=== PATIENT | female | born 1960 | race Asian ===

== ENCOUNTER 2020-12-29 12:06 | Emergency (ER) | payer OTHER ==
--- OUTSIDE RECORDS SUMMARY | 2020-12-29 12:11 | XMS REPORT | Continuity of Care Document ---
:1960 Author Organization [facility] [place] [facility] t Address [address] [place] [address] Care Team Providers Name Role Phone ABI Attending Clinician Unavailable MICK Attending Clinician Unavailable ABI Attending Clinician Unavailable Alexandr Alex Attending Clinician Unavailable [facility] Attending Clinician Unavailable [facility] Attending Clinician Unavailable Brianda Alex Attending Clinician Unavailable Payers Payer Name Policy Type Policy Number Effective Date Expiration Date Chris BIGGS [id number] 2020 HEALTH PLAN 00:00:00 Problems Condition Condition Condition Status Onset Resolution Last Treating Co mments Source Name Details Category Date Date Treatment Clinician Date R01.1 Diagnosis Active 2017-01-21 [facility] 8-16 11:21:00 l R01.1 00:00: [place] 00 Active 01/01/2017 [facility] History of History of Problem Resolve Univers constipati constipati d it y of on on [place] [facility] History of History of Problem Resolve Univers diabetes diabetes d ity of mellitus mellitus [place] [facility] History of History of Problem Resolve Univers Helicobact Helicobact d [place] pylori [place] pylori [place] infection infection Phys [place] ans History of History of Problem Resolve Univers hypertensi hypertensi d it y of on on [place] [facility] Well woman Well woman Problem Active U nivers exam (no exam (no ity of gynecolog[place] gynecolog[place]ac exam[place] isaac exam) Phys ici ans Contact Contact Problem Active Univers with and with and ity of (suspected (suspected [place] exposure ) exposure Ph ysici to viral to viral ans hepatitis hepatitis Screening Screening Problem Active Uni vers for HIV for HIV ity of (human (human [place] immunodefi immunodefi Ph ysici ciency ciency ans virus) virus) Cataract Cataract Problem Active Unive rs ity of [place] [facility] Well woman Well woman Problem Active U nivers exam with exam with ity of routine routine [place] gynecologi gynecologi Ph ysici isaac exam isaac exam ans Acute Acute Problem Active Univers bronchitis bronchitis it y of [place] [facility] Systolic Systolic Problem Active Unive rs ejection ejection ity of murmur murmur [place] [facility] Skin rash Skin rash Problem Active Uni vers ity of [place] [facility] Chronic Chronic Problem Active Univers cough cough ity of [place] [facility] Hepatitis Hepatitis Problem Active Uni vers B B ity of vaccin[place] vaccinatio [place] status n status Physic i unknown unknown ans Abdominal Abdominal Problem Active Uni vers pain, pain, ity of acute acute [place] [facility] Steatosis Steatosis Problem Active Uni vers of liver of liver ity of [place] [facility] Encounter Encounter Problem Active Uni vers for for [place] mamm[place] Phys ici for breast for breast an s cancer cancer Mitral Mitral Problem Active Univers valve valve ity of prolapse prolapse [place] [facility] Hypertensi Hypertensi Problem Active U nivers ve heart ve heart ity of disease disease [place] without without Physici CHF CHF ans Acid Acid Problem Active Univers reflux reflux ity of [place] [facility] Diabetes Diabetes Problem Active Unive rs mellitus, mellitus, ity of type II type II [place] [facility] HTN HTN Problem Active Univers (hypertens (hypertens it y of ion) ion) [place] [facility] Microalbum Microalbum Problem Active 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 2 [place] diabetes diabetes Physic i mellitus mellitus ans Hyperlipid Hyperlipid Problem Active U nivers emia emia ity of [place] [facility] Vitamin D Vitamin D Problem Active Uni vers deficiency deficiency it y of [place] [facility] Encounter Encounter Problem Active Uni vers for for [place] of vaccinatio vaccinatio [place] Physici ans Sciatica Sciatica Problem Active Unive rs of left of left ity of side side [place] [facility] Breast Breast Problem Active Univers cancer cancer [place] of [place] [facility] [place] Overweight Overweight Problem Active U nivers (BMI (BMI ity of 25.0-29.9) 25.0-29.9) [place] [facility] 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 Social History Social Habit Start Date Stop Date Quantity Comments Source Social History 2017-01-22 2017-01-22 [facility] 04:59:00 04:59:00 Smoking Status Start Date Stop Date Source Never smoked tobacco (finding) U [facility] Medications Ordered Filled Start Stop Current Ordering Indication Dosage Frequency Signature Comments Components Source Medication Medication Date Date Medication? Clinician (SIG) Name Name Chlorthalid Chlorthalid Yes LIEN 1 QD TAKE 1 Univers one 25 MG one 25 MG 3-10 ALEX TABLET i ty of Oral Tablet Oral Tablet 00:00: P.A. DAILY. Physici ans Meclizine Meclizine Yes LIEN 1 QD TAKE 1 U nivers HCl - 25 MG HCl - 25 MG 3-10 ALEX TABLET ity of Oral Tablet Oral Tablet 00:00: P.A. Daily PRN [place] 00 dizziness Physici ans Atorvastati Atorvastati Yes LIEN TAKE 1 Univers n Calcium n Calcium 3-22 ALEX TABLET AT ity of 20 MG Oral 20 MG Oral 00:00: P.A. BEDTIME. [place] Tablet Tablet 00 Physici ans metFORMIN metFORMIN Yes LIEN Q0.5D TAKE 1 Univers HCl - 850 HCl - 850 6-20 ALEX TABLET i ty of MG Oral MG Oral 00:00: P.A. TWICE [place] Tablet Tablet 00 DAILY WITH Physi ci MEALS. ans Losartan Losartan Yes LIEN 1 QD TAKE 1 Uni vers Potassium Potassium 1-02 ALEX TABLET i ty of 100 MG Oral 100 MG Oral 00:00: P.A. DAILY. [place] Tablet Tablet Physici ans Vitamin D Vitamin D 2017-0 Yes LIEN TAKE 1 U nivers (Ergocalcif (Ergocalcif 7-10 ALEX CAPSULE BY ity of kiley) 1.25 kiley) 1.25 00:00: P.A. MOUTH [place] MG (34146 MG (15065 00 WEEKLY Phy sici [place]) Oral [place]) Oral ans Capsule Capsule Immunizations Ordered Immunization Filled Immunization Date Status Commen ts Source Name Name Shingrix 50 MCG 2020-07-26 Completed Universit y of Intramuscular 12:12:00 [place] [facility] Suspension Reconstituted Shingrix 50 MCG 2020-04-25 Completed Universit y of Intramuscular 09:42:00 [place] [facility] Suspension Reconstituted Flublok Quadrivalent 2020-04-25 Completed Univ ersity of 0.5 ML Intramuscular 09:40:00 [facility] Solution Prefilled Syringe Fluzone Quadrivalent 2019-03-22 Completed Univ ersity of 0.5 ML Intramuscular 11:08:00 [facility] Suspension Engerix-B 20 MCG/ML 2018-05-05 Completed Unive rsity of Intramuscular 10:30:00 [place] [facility]ians Injectable Tdap 2018-02-09 Completed University of 10:42:00 [place] [facility]icia ns Fluzone Quadrivalent 2018-02-09 Completed Univ ersity of 0.5 ML Intramuscular 10:41:00 [facility] Suspension Pneumovax 23 25 2017-11-05 Completed Universit y of MCG/0.5ML Injection 12:06:00 [place] [facility] Injectable Engerix-B 20 MCG/ML 2017-11-05 Completed Unive rsity of Intramuscular 12:05:00 [place] [facility] Injectable Engerix-B 20 MCG/ML 2017-06-11 Completed Unive rsity of Intramuscular 00:00:00 [place] [facility] Injectable Fluzone Quadrivalent 2017-06-03 Completed Univ ersity of 0.5 ML Intramuscular 10:39:00 [facility] s Physicians Suspension Vital Signs Vital Name Observation Time Observation Value Comments Source Systolic blood 2020-07-26 143 mm[Hg] Location: [facility]; [place] of pressure 10:42:00 Position: [place] [facility] Sitting Diastolic blood 2020-07-26 83 mm[Hg] Location: [place]; University of pressure 10:42:00 Position: [place] [facility] Sitting Body height 2020-07-26 59 [in_us] University of 10:42:00 [place] [facility] Weight 2020-07-26 135 [lb_av] University of :42:00 [place] [facility] Body mass index 2020-07-26 27.27 kg/m2 [place] o f (BMI) [Ratio] 10:42:00 [place] [facility] Body temperature 2020-07-26 96.2 [degF] Method: [place] of 10:42:00 Temporal [place] [facility] Heart Rate 2020-07-26 68 /min Location: R [place] of :42:00 Brachial [place] [facility] Artery; Respiratory rate 2020-07-26 18 /min Quality: Normal Universi ty of 10:42:00 [place] [facility] O2 SAT 2020-07-26 100 % Source: [facility] :42:00 [place] [facility] s Systolic blood 2020-07-12 150 mm[Hg] Location: [place]; [facility] 11:29:00 Position: [place] [facility] Sitting Diastolic blood 2020-07-12 88 mm[Hg] Location: [place]; [facility] 11:29:00 Position: [place] [facility] Sitting Body mass index 2020-07-12 27.35 kg/m2 [place] o f (BMI) [Ratio] 10:43:00 [place] [facility] Body temperature 2020-07-12 96.9 [degF] Method: [facility] :43:00 Temporal [place] [facility] s Heart Rate 2020-07-12 88 /min Location: R [facility] :43: Brachial [place] [facility] Artery; Respiratory rate 2020-07-12 18 /min Quality: Normal Universi ty of 10:43:00 [place] [facility] s O2 SAT 2020-07-12 99 % Source: [facility] :43:00 [place] [facility] s Systolic blood 2020-07-12 148 mm[Hg] Location: [place]; [facility] 10:43:00 Position: [place] [facility] s Sitting Diastolic blood 2020-07-12 85 mm[Hg] Location: [place]; [place] of pressure 10:43:00 Position: [place] [facility] s Sitting Body height 2020-07-12 59 [in_us] University of 10:43:00 [place] [facility] Weight 2020-07-12 135.4 [lb_av] University of 10:43:00 [place] [facility] Systolic blood 2020-04-25 149 mm[Hg] Location: [place]; [facility] pressure 09:01:00 Position: [place] [facility] s Sitting Diastolic blood 2020-04-25 86 mm[Hg] Location: [place]; [facility] pressure 09:01:00 Position: [place] [facility] Sitting Body height 2020-04-25 59 [in_us] University of 09:01:00 [place] [facility] Weight 2020-04-25 136 [lb_av] University 09:01:00 [place] [facility] Body mass index 2020-04-25 27.47 kg/m2 University o f (BMI) [Ratio] 09:01:00 [place] [facility] Body temperature 2020-04-25 96.2 [degF] Method: University of 09:01:00 Tympanic [place] [facility] Heart Rate 2020-04-25 82 /min Location: L [facility] 09:01:00 Brachial [place] [facility] Artery; Quality: Normal Respiratory rate 2020-04-25 17 /min Quality: Normal Universi ty of 09:01:00 [place] [facility] O2 SAT 2020-04-25 99 % Source: [facility] 09:01:00 [place] [facility] s Systolic blood 2019-10-26 153 mm[Hg] Location: [place]; [place] [facility] 08:39:00 Position: [place] [facility] Sitting Diastolic blood 2019-10-26 86 mm[Hg] Location: [place]; [place] of pressure 08:39:00 Position: [place] [facility] Sitting Heart Rate 2019-10-26 72 /min Location: [place] [facility] 08:39:00 Brachial [place] [facility] Artery; Systolic blood 2019-10-26 158 mm[Hg] Location: [place]; [place] of pressure 08:22:00 Position: [place] [facility] s Sitting Diastolic blood 2019-10-26 88 mm[Hg] Location: [place]; [place] of pressure 08:22:00 Position: [place] [facility] s Sitting Heart Rate 2019-10-26 79 /min Location: L [facility] 08:22:00 Brachial [place] [facility] Artery; Body height 2019-10-26 59 [in_us] University of 08:22:00 [place] [facility] Weight 2019-10-26 134.5 [lb_av] University 08:22:00 [place] [facility] Body mass index 2019-10-26 27.17 kg/m2 University o f (BMI) [Ratio] 08:22:00 [place] [facility] Body temperature 2019-10-26 98.5 [degF] Method: Oral University 08:22:00 [place] [facility] s Respiratory rate 2019-10-26 16 /min Quality: Normal Universi ty of 08:22:00 [place] [facility] O2 SAT 2019-10-26 99 % Source: [place] of 08:22:00 [place] [facility] BP Systolic 2019-03-22 131 mm[Hg] Location: [facility]; [facility] :43:00 Position: [place] [facility] s Sitting BP Diastolic 2019-03-22 86 mm[Hg] Location: [place]; [facility] 09:43:00 Position: [place] [facility] Sitting Height 2019-03-22 59 [in_us] University of 09:43:00 [place] [facility] Weight 2019-03-22 134 [lb_av] University of 09:43:00 [place] [facility] Body Mass Index 2019-03-22 27.06 kg/m2 University o f Calculated 09:43:00 [place] [facility] s Temperature 2019-03-22 97.4 [degF] Method: Oral [place] of 09:43:00 [place] [facility] Heart Rate 2019-03-22 75 /min [place] of 09:43:00 [place] [facility] Respiration Rate 2019-03-22 16 /min [place] of 09:43:00 [place] [facility] O2 SAT 2019-03-22 100 % [facility] 09:43:00 [place] [facility] BP Systolic 2018-11-04 119 mm[Hg] Location: [place]; [place] of 10:00:00 Position: [place] [facility] s Sitting BP Diastolic 2018-11-04 75 mm[Hg] Location: [facility]; [place] of 10:00:00 Position: [place] [facility] Sitting Height 2018-11-04 59 [in_us] University of 10:00:00 [place] [facility] Weight 2018-11-04 131.5 [lb_av] University of 10:00:00 [place] [facility] Body Mass Index 2018-11-04 26.56 kg/m2 University o f Calculated 10:00:00 [place] [facility] s Temperature 2018-11-04 98.1 [degF] Method: Oral University of 10:00:00 [place] [facility] Heart Rate 2018-11-04 77 /min Location: [place] of 10:00:00 Brachial [place] [facility] Artery; Respiration Rate 2018-11-04 18 /min Quality: Normal Universi ty of 10:00:00 [place] [facility] O2 SAT 2018-11-04 100 % Source: [place] of 10:00:00 [place] [facility] BP Systolic 2018-05-05 131 mm[Hg] Location: [place]; [facility] :55:00 Position: [place] [facility] Sitting BP Diastolic 2018-05-05 82 mm[Hg] Location: [facility]; [place] of :55:00 Position: [place] [facility] Sitting Height 2018-05-05 59.06 [in_us] [facility] 09:55:00 [place] [facility] Weight 2018-05-05 132.125 [lb_av] University o 09:55:00 [place] [facility] Body Mass Index 2018-05-05 26.63 kg/m2 University o f Calculated 09:55:00 [place] [facility] Temperature 2018-05-05 97.9 [degF] Method: Oral [place] of :55:00 [place] [facility] Heart Rate 2018-05-05 74 /min Location: R [facility] :55:00 Brachial [place] [facility] Artery; Respiration Rate 2018-05-05 18 /min Quality: Normal Universi ty of 09:55:00 [place] [facility] O2 SAT 2018-05-05 99 % Source: [facility] :55:00 [place] [facility] BP Systolic 2018-02-16 139 mm[Hg] Location: [facility] :05:00 Position: [place] [facility] Sitting BP Diastolic 2018-02-16 86 mm[Hg] Location: [facility] :05:00 Position: [place] [facility] Sitting Height 2018-02-16 59.06 [in_us] University of 10:05:00 [place] [facility] Weight 2018-02-16 133 [lb_av] University of 10:05:00 [place] [facility] Body Mass Index 2018-02-16 26.81 kg/m2 University o f Calculated 10:05:00 [place] [facility] Temperature 2018-02-16 98.3 [degF] Method: Oral [place] of :05:00 [place] [facility] Heart Rate 2018-02-16 78 /min Location: R [facility] :05:00 Brachial [place] [facility] Artery; Respiration Rate 2018-02-16 18 /min Quality: Normal Universi ty of 10:05:00 [place] [facility] O2 SAT 2018-02-16 100 % Source: [facility] 10:05:00 [place] [facility] BP Systolic 2018-02-09 137 mm[Hg] Location: [facility]; [facility] 09:37:00 Position: [place] [facility] s Sitting BP Diastolic 2018-02-09 89 mm[Hg] Location: [place]; [facility] :37:00 Position: [place] [facility] Sitting Temperature 2018-02-09 98 [degF] Method: Oral [place] of :37:00 [place] [facility] Heart Rate 2018-02-09 83 /min Location: R [place] of :37:00 Brachial [place] [facility] Artery; Respiration Rate 2018-02-09 18 /min Quality: Normal Universi ty of 09:37:00 [place] [facility] Weight 2018-02-09 132.375 [lb_av] University o f 09:37:00 [place] [facility] Body Mass Index 2018-02-09 26.68 kg/m2 University o f Calculated 09:37:00 [place] [facility] BP Systolic 2017-11-05 128 mm[Hg] Location: [facility]; [place] of :58:00 Position: [place] [facility] Sitting BP Diastolic 2017-11-05 89 mm[Hg] Location: [facility] :58:00 Position: [place] [facility] Sitting Height 2017-11-05 59.06 [in_us] [place] of :58:00 [place] [facility] Weight 2017-11-05 134.5 [lb_av] [place] of :58:00 [place] [facility] Body Mass Index 2017-11-05 27.11 kg/m2 University o f Calculated 10:58:00 [place] [facility] s Temperature 2017-11-05 98 [degF] Method: [facility] of 10:58:00 [place] [facility] Heart Rate 2017-11-05 71 /min Location: R [facility] :58:00 Brachial [place] [facility] s Artery; Respiration Rate 2017-11-05 18 /min Quality: Normal Universi ty of 10:58:00 [place] [facility] s O2 SAT 2017-11-05 100 % Source: [facility] of 10:58:00 [place] [facility] s BP Systolic 2017-06-03 138 mm[Hg] Location: [facility]; [place] of :42:00 Position: [place] [facility] s Sitting BP Diastolic 2017-06-03 90 mm[Hg] Location: [facility]; [place] of :42:00 Position: [place] [facility] s Sitting Height 2017-06-03 59.06 [in_us] [place] of 09:42:00 [place] [facility] Weight 2017-06-03 137.5 [lb_av] [place] of 09:42:00 [place] [facility] Body Mass Index 2017-06-03 27.72 kg/m2 University o f Calculated 09:42:00 [place] [facility] s Temperature 2017-06-03 97.9 [degF] Method: Oral [place] of 09:42:00 [place] [facility] Heart Rate 2017-06-03 75 /min Location: R [place] of 09:42:00 Brachial [place] [facility] Artery; Respiration Rate 2017-06-03 18 /min Quality: Normal Universi ty of 09:42:00 [place] [facility] BP Systolic 2017-05-20 133 mm[Hg] Location: [facility]; [facility] 10:54:00 Position: [place] [facility] s Sitting BP Diastolic 2017-05-20 90 mm[Hg] Location: [facility]; [facility] 10:54:00 Position: [place] [facility] s Sitting Heart Rate 2017-05-20 86 /min Location: R [facility] 10:54:00 Brachial [place] [facility] Artery; BP Systolic 2017-05-20 142 mm[Hg] Location: [facility]; [facility] 10:51:00 Position: [place] [facility] s Sitting BP Diastolic 2017-05-20 85 mm[Hg] Location: [facility]; [facility] 10:51:00 Position: [place] [facility] s Sitting Heart Rate 2017-05-20 86 /min Location: R [facility] 10:51:00 Br[place]ial [place] [facility] Artery; Height 2017-05-20 59.06 [in_us] University of 10:51:00 [place] [facility] Weight 2017-05-20 135 [lb_av] University of 10:51:00 [place] [facility] Body Mass Index 2017-05-20 27.21 kg/m2 [place] [facility] Calculated 10:51:00 [place] [facility] Temperature 2017-05-20 98.1 [degF] Method: Oral [place] of 10:51:00 [place] [facility] Respiration Rate 2017-05-20 18 /min Quality: Normal Universi ty of 10:51:00 [place] [facility] BMI Calculated 2017-01-21 [facility] 16:41:00 Weight 2017-01-21 [facility] 16:41:00 Height 2017-01-21 157.48 cm [facility] 16:41:00 Procedures Procedure Date / Time Performing Clinician Source Performed [QL] CMP W/EGFR 2020-07-26 00:00:00 [facility] [place] [facility] [Q] LIPID PANEL WITH 2020-07-26 00:00:00 [facility] [place] REFLEX TO DIRECT LDL Physicians [QL] VITAMIN D, 2020-07-26 00:00:00 [place] [facility] [place] [facility] 25-HYDROXY, LC/MS/MS Physicians [QL] MICROALBUMIN, 2020-07-26 00:00:00 [facility] RANDOM URINE Physicians (W/CREATININE) [O] Urine Dipstick (In 2020-07-26 00:00:00 [facility] Office) Physicians [QL] HEMOGLOBIN A1c 2020-04-25 00:00[facility]00 [facility] Physicians [QL] CMP W/EGFR 2020-04-25 00:00:00 [facility] [place] [facility] Physicians [Q] LIPID PANEL WITH 2020-04-25 00:00:00 [facility] REFLEX TO DIRECT LDL Physicians [Q] LIPID PANEL WITH 2019-10-26 00:00:00 [facility] REFLEX TO DIRECT LDL Physicians [QL] CBC (INCLUDES 2019-10-26 00:00:00 [facility] DIFF/PLT) Physicians [QL] CMP W/EGFR 2019-10-26 00:00:00 [place] [facility] [place] [facility] Physicians [QL] TSH, 3RD 2019-10-26 00:00:00 [place] [facility] [place] GENERATION W/REFLEX TO Physician s FT4 [QL] VITAMIN D, 2019-10-26 00:00:00 [facility] 25-HYDROXY, LC/MS/MS Physicians [QL] MICROALBUMIN, 2019-10-26 00:00:00 [facility] RANDOM URINE Physicians (W/CREATININE) [place] Breast mammogram 2019-10-26 00:00:00 [facility] screen bilateral [id number] Physician s [QH] LIPID PANEL WITH 2019-03-22 00:00:00 [facility] REFLEX TO DIRECT LDL Physicians [QLH] CMP W/EGFR 2019-03-22 00:00:00 [facility] Physicians [QLH] HEMOGLOBIN A1c 2019-03-22 00:00:00 [facility] Physicians [QLH] VITAMIN D, 2019-03-22 00:00:00 [facility] 25-HYDROXY, LC/MS/MS Physicians [QLH] Helicobacter 2019-03-22 00:00:00 [facility] pylori Breath Test Physicians [place] Breast mammogram 2019-03-22 00:00:00 [facility] screen bilateral [id number] Physician s [QH] LIPID PANEL WITH 2018-11-04 00:00:00 [facility] REFLEX TO DIRECT LDL Physicians [O] Hemoglobin A1c (in 2018-11-04 00:00:00 [facility] office) Physicians [QLH] CBC (INCLUDES 2018-11-04 00:00:00 [facility] DIFF/PLT) Physicians [QLH] CMP W/EGFR 2018-11-04 00:00:00 [facility] Physicians [QLH] TSH, 3RD 2018-11-04 00:00:00 [facility] [place] GENERATION W/REFLEX TO Physician s FT4 [QLH] VITAMIN D, 2018-11-04 00:00:00 [facility] 25-HYDROXY, LC/MS/MS Physicians [QLH] MICROALBUMIN, 2018-11-04 00:00:00 [facility] RANDOM URINE Physicians (W/CREATININE) [place] Breast mammogram 2018-11-04 00:00:00 [facility] screen bilateral [id number] Physician s [QLH] HEMOGLOBIN A1c 2018-03-30 00:00:00 [facility] Physicians [QH] LIPID PANEL WITH 2018-03-30 00:00:00 [facility] REFLEX TO DIRECT LDL Physicians [QLH] HEPATIC FUNCTION 2018-03-30 00:00:00 [facility] PANEL Physicians [QLH] Helicobacter 2018-03-30 00:00:00 [facility] pylori Breath Test Physicians [QLH] Helicobacter 2018-02-09 00:00:00 [facility] pylori Breath Test Physicians Abdomen AP view 2018-02-09 00:00:00 [facility] [id number] Physicians US Abdomen complete 2018-02-09 00:00:00 [facility] [id number] Physicians [QLH] CMP W/EGFR 2017-11-05 00:00:00 [facility] Physicians [QLH] LIPID PANEL 2017-11-05 00:00:00 [facility] Physicians [QLH] CBC (INCLUDES 2017-11-05 00:00:00 [facility] DIFF/PLT) Physicians [QLH] TSH, 3RD 2017-11-05 00:00:00 [facility] [place] GENERATION W/REFLEX TO Physician s FT4 [QLH] MICROALBUMIN, 2017-11-05 00:00:00 [facility] RANDOM URINE Physicians (W/CREATININE) [place] Breast mammogram 2017-11-05 00:00:00 [facility] screen bilateral [id number] Physician s [QLH] LIPID PANEL 2017-06-03 00:00:00 [facility] Physicians [QL] MICROALBUMIN, 2017-06-03 00:00:00 [facility] RANDOM URINE Physicians (W/CREATININE) [QLH] HEPATITIS B 2017-06-03 00:00:00 [facility] SURFACE ANTIBODY Physicians (QUANT) [QLH] HEPATITIS A AB, 2017-06-03 00:00:00 [facility] TOTAL Physicians [QLH] VITAMIN D, 2017-06-03 00:00:00 [facility] 25-HYDROXY, LC/MS/MS Physicians [QL] CMP W/EGFR 2017-06-03 00:00:00 [facility] Physicians [QL] HEPATITIS B CORE 2017-06-03 00:00:00 [facility] AB TOTAL Physicians XRAY Chest 2 views 2017-06-03 00:00:00 [facility] [id number] Physicians [QLH] MICROALBUMIN, 2017-05-20 00:00:00 [facility] [facility] RANDOM URINE Physicians (W/CREATININE) [QLH] VITAMIN D, 2017-05-20 00:00:00 [facility] 25-HYDROXY, LC/MS/MS Physicians [QL] LIPID PANEL 2017-05-20 00:00:00 [facility] Physicians [QL] LIPID PANEL 2017-02-26 00:00:00 [facility] Physicians [QL] HEPATIC FUNCTION 2017-02-26 00:00:00 [facility] PANEL Physicians History of Hysterectomy [facility] Physicians Plan of Care Planned Activity Planned Date Details Comments Source Future Scheduled 2019-11-25 [place] Breast mammogram [facility] Test 00:00:00 screen bilateral Physicians [id number] [code = 92296-8] Future Scheduled 2019-11-25 [place] Breast mammogram [facility] Test 00:00:00 screen bilateral Physicians 21864 [code = 14465-4] Diagnostic Test 2019-07-01 [place] Breast mammogram [facility] Pending 00:00:00 screen bilateral Physicians 16103 [code = 00839-8] Diagnostic Test 2019-05-24 [place] Breast mammogram [facility] Pending 00:00:00 screen bilateral Physicians 96164 [code = 72076-9] Diagnostic Test 2019-04-21 [place] [facility] screen bilateral Physicians 91977 [code = 34145-6] Diagnostic Test 2019-02-04 [place] Breast mammogram Un[facility] rs[facility] Pending 00:00:00 screen bilateral Physicians 80937 [code = 27776-3] Diagnostic Test 2019-01-04 [place] [facility] 00:[facility]00 screen bilateral Physicians 84212 [code = 03167-6] Diagnostic Test 2018-12-04 [place] Breast mammogram [facility] Pending 00:00:00 screen bilateral Physicians 77403 [code = 18483-5] Encounters Start End Encounter Admission Attending Care Care Encounter Source Date/Time Date/Time Type Type Clinicians Facility Department ID 2020-12-25 Outpatient [facility] [id number] [place] 14:24:52 [facility] 2020-12-25 Outpatient [facility] [id number] [place] 10:33:08 [facility] 2020-11-09 Outpatient ALEX, [facility] [id number] [place] 10:20:10 [facility] 2020-10-24 Outpatient ALEX, [facility] [id number] [place] 08:52:16 [facility] 2020-09-28 Outpatient [facility] [id number] [place] 10:57:04 [facility] 2020-09-28 Outpatient [facility] [id number] [place] 10:51:24 [facility] 2020-09-28 Outpatient TZOU, [facility] [id number] [place] 10:47:51 [facility] 2020-09-23 Outpatient TZOU, [facility] [id number] [place] 03:51:03 [facility] 2020-11-23 2020-11-23 Telephone Abi UTP SW [id number] 00:00:00 00:00:00 Lien MULTI [id number] SPECIALTY [id number] [facility] [id number] 2020-11-09 2020-11-09 Office Alex, UTP SW [id number] 09:01:18 10:20:06 Visit Lieirene MULTI [id number] SPECIALTY [id number] CLINIC [id number] 2020-09-28 2020-09-28 Office KIARRA Pratt [id number] 08:40:39 10:45:46 Visit Shayy JEAN [id number] MEDICAL [id number] [facility] [id number] 2020-07-26 2020-07-[facility]RA ALEX Multis[facility]ia [id number] Univers 11:00:00 11:00:00 t; RICH ALEX P.A. lty - ity miya VILLANUEVA PHayden Internation T [facility] 2020-07-26 2020-07-26 [facility] [id number] Univers 10:20:00 10:20:00 t; RICH ALEX P.A. ity miya VILLANUEVA P.[facility] 2020-07-12 2020-07-12 [id number] Univers 10:20:00 10:20:00 t; RICH ALEX P.A. lty - ity miya VILLANUEVA, PHayden Internation T [facility] 2020-05-09 2020-05-09 [facility] [id number] Univers 09:20:00 09:20:00 t; RICH ALEX P.A. ity miya VILLANUEVA P.[facility] 2020-04-25 2020-04-25 [id number] Univers 09:00:00 09:00:00 t; RICH ALEX P.A. lty - ity miya VILLANUEVA, PHayden Internation T [facility] ans 2019-12-01 2019-12-02 Outpatient nullFlavo [facility] [id number] Memoria 14:32:00 04:59:00 r Outpatient 03 l Imaging [facility] 2019-12-01 2019-12-01 Outpatient Abi [id number] 09:32:00 23:59:00 Rich Strange [id number] 2019-10-26 2019-10-26 Appointmen ALEX, [facility] Multispecia [id number] Univers 08:40:00 08:40:00 t; RICH ALEX P.A. lty - ity [facility] 2019-07-21 2019-07-21 Appointmen ALEX, [facility] [id number] Univers 09:00:00 09:00:00 t; RICH ALEX P.A. ity of RICH PHayden [facility] 2019-03-29 2019-03-29 Appointmen [facility] [id number] Univers 09:15:00 09:15:00 t; [facility], ity of [facility] 2019-03-22 2019-03-22 Appointmen ABI [facility] Multispecia [id number] Univers 09:40:00 09:40:00 t; RICH ALEX P.A. lty - ity of RICH PHayden Internation T [facility] 2018-11-04 2018-11-04 Appointmen ALEX, [facility] Multispecia [id number] Univers 10:20:00 10:20:00 t; RICH ALEX P.A. lty - ity of RICH, PHayden Internation T [facility] 2018-05-05 2018-05-[address] [facility] [id number] Univers 09:40:00 09:40:00 t; RICH ALEX P.A. Health and ity of RICH PHayden Wellness [facility] 2018-05-05 2018-05-05 Appointmen KIARRA ALEX [facility] [id number] Univers 09:30:00 09:30:00 t; RICH ALEX P.A. ity of RICH PHayden [facility] 2018-03-30 2018-03-30 Appointmen CHW, NURSE [facility] [id number] Univers 09:45:00 09:45:00 t; CHW, Health and ity of NURSE Wellness [facility] 2018-02-16 2018-02-[address] [facility] [id number] Univers 09:45:00 09:45:00 t; RICH ALEX P.A. Health and ity of RICH, P.A. Wellness [facility] 2018-02-09 2018-02-10 Outpt Diag nullFlavo [facility] [id number] Memoria 17:18:00 04:59:00 Services r Outpatient 02 l Imaging [facility] 2018-02-09 2018-02-09 Outpatient Abi [id number] 12:18:00 23:59:00 Lien Brianda [id number] 2018-02-09 2018-02-[address] [facility] [id number] Univers 09:30:00 09:30:00 t; RICH ALEX P.A. Health and ity of RICH, P.A. Well[facility] 2017-11-27 2017-11-28 Outpatient nullFlavo [facility] [id number] Memoria 19:05:00 04:59:00 r Outpatient 01 l Imaging [facility] 2017-11-27 2017-11-27 Outpatient Abi [id number] 14:05:00 23:59:00 Lien Brianda [id number] 2017-11-05 2017-11-[address] [facility] [id number] Univers 11:00:00 11:00:00 t; RICH ALEX P.A. Health and ity of RICH, P.A. Wellness [facility] 2017-06-11 2017-06-11 Appointmen CHW, NURSE [place] [id number] Univers 09:30:00 09:30:00 t; CHW, Health and ity of NURSE Wellness [facility] 2017-06-03 2017-06-[address] [facility] [id number] Univers 09:30:00 09:30:00 t; RICH ALEX P.A. Health and ity of LIEN, P.A. Wellness [facility] 2017-05-20 2017-05-[address] [facility] [id number] Univers 09:30:00 09:30:00 t; RICH ALEX P.A. Health and ity of LIEN, P.A. Well[facility] 2017-03-25 2017-03-25 Appointmen CHW, NURSE [facility] [id number] Univers 08:45:00 08:45:00 t; CHW, ity of NURSE [facility] 2017-02-25 2017-02-25 AppointKIARRA Degroot [facility] [id number] Univers 09:30:00 09:30:00 t; RICH ALEX P.A. ity of LIEN, P.A. [facility] 2017-01-21 2017-01-22 Outpatient [facility] [id number] Memoria 16:21:00 04:59:00 r Davie 00 l [facility] 2017-01-21 2017-01-21 Outpatient Alex, [facility] [id number] 11:21:00 23:59:00 Rich Brianda 00 2017-01-21 2017-01-21 Appointmen KIARRA ALEX [facility] [id number] Univers 10:45:00 10:45:00 t; RICH ALEX P.A. ity of LIEN, P.A. [facility] 2017-01-01 2017-01-01 AppointKIARRA Degroot [facility] [id number] Univers 11:00:00 11:00:00 t; RICH ALEX P.A. ity of LIEN, P.A. [facility] 2016-11-25 2016-11-25 Appointmen KIARRA ALEX [facility] [id number] Univers 09:45:00 09:45:00 t; RICH ALEX P.A. itmarilu of [facility] 2016-11-05 2016-11-05 Appointmen ABI KIARRA [facility] [id number] Univers 08:30:00 08:30:00 t; RICH ALEX P.A. ity of [facility] Results Test Description Test Time Test Comments Results Result Comments Source [O] Urine Dipstick (In Office) 2020-07-26 12:43:00 Test Item Value Reference Range Interpretation Comme nts Glucose (test code = Glucose) NEGATIVE LEUKOCYTES (test code = LEUKOCYTES) NEGATIVE NITRITE (test code = 73737-6) NEGATIVE UROBILINOGEN (test code = 39308-8) 0.2 E.U./dL PROTEIN (test code = 25248-7) NEGATIVE pH (test code = pH) 5.0 URINE BLOOD (test code = 50956-0) NEGATIVE SPECIFIC GRAVITY (test code = 2965-2) 1.020 KETONES (test code = 16793-7) NEGATIVE BILIRUBIN (test code = 03553-3) NEGATIVE COLOR URINE (test code = 5778-6) YELLOW APPEARANCE (test code = 5767-9) CLEAR [facility] Physicians[Q] LIPID PANEL WITH REFLEX TO DIRECT LDL 2020-07-26 11:55:00 Test Item Value Reference Range Interpretation Comments CHOLESTEROL, TOTAL; 158 mg/dl <200 N Normal (test code = 2093-3) HDL CHOLESTEROL; 46 mg/dl See_Comment [Automated message] Below Low Threshold The syst em which (test code = 2085-9) generat ed this result transmit ortiz reference range : > OR = 50. The reference range was not used to interpret this result as normal/abnormal . TRIGLYCERIDES; Above 196 mg/dl <150 High Threshold (test code = 2571-8) LDL-CHOLESTEROL; 83 {MG/DL N Reference r mame: Normal (test code = ISAAC} <100 David irable range 41539-1) <100 mg/dL for primary prevent ion; <70 mg/dL for patients with C HD or diabetic patien ts with > or = 2 C HD risk factors. L DL-C is now calculat ed using the Al-Corcoran calculation, wh ich is a validated novel method providin g better accuracy than the Friedewald equation in the estimation of L DL-C. Al SS et al . MATHEW. 2013;310( 19): 3196-7566 (http://educati on.EVIIVO. com/f aq/LAK446) CHOL/HDLC RATIO 3.4 {CALC} <5.0 N (test code = CHOL/HDLC RATIO) NON HDL CHOLESTEROL 112 {MG/DL <130 N For sherry ents with (test code = NON HDL ISAAC} diabete s plus 1 CHOLESTEROL) major ASCVD ris k factor, treatin g to a non-HDL-C goa l of <100 mg/dL (LDL -C of <70 mg/dL) is considered a therapeutic opt ion. [facility] Physicians[QL] MICROALBUMIN, RANDOM URINE (W/CREATININE) 2020-07-26 11:55:00 Test Item Value Reference Range Interpretation Comments CREATININE, RANDOM 68 mg/dl 20-275 N URINE (test code = CREATININE, RANDOM URINE) MICROALBUMIN (test 1.7 mg/dl N Reference RangeNot code = established MICROALBUMIN) MICROALBUMIN/CREATI 25 {MCG/MG <30 N The ADA defines NINE RATIO, RANDOM CRE} abnormali ties in URINE (test code = albuminex cretion as MICROALBUMIN/CREATI follows: Category NINE RATIO, RANDOM Result (mcg/mg URINE) creatinine) Nor mal <30Microalbumin uria 30-299 Clin ical albuminuria > OR = 300 The ADA rec ommends that at least t wo of threespecimens collected withi n a 3-6 month period be abnormal before consider ing a patient to bewi thin a diagnostic yari gory. Reference RangeNot establishedREPORT COMMENT:FASTING:YESUnMoab [facility] Hospital Physicians[QL] CMP [id number] 11:55:00 Test Item Value Reference Range Interpretation Comments GLUCOSE; Above 130 mg/dl 65-99 Fasting refer ence High Threshold interval For someone (test code = without known 1547-9) diabetes, a glucosevalue >1 25 mg/dL indicates that they may havedi abetes and this should be confirmed with afollow-up test . UREA NITROGEN 15 mg/dl 7-25 N (BUN) (test code = UREA NITROGEN (BUN)) CREATININE (test 0.82 mg/dl 0.50-0.99 N For patient s >49 years code = of age, the ref erence CREATININE) limitfor Creati nine is approximately 1 3% higher for peopleidentifie d as -Ashlie n. eGFR NON-AFR. 77 {ML/MIN/1.7} See_Comment N [Automated message] [place] (test The system ich code = eGFR generated this result NON-AFR. transmitted ref erence [place]) range: > OR = 6 0. The reference range was not used to int erpret this result as normal/abnormal . eGFR 89 {ML/MIN/1.7} See_Comment N [Automated message] [place] (test The system ich code = eGFR generated this result ) transmitte d reference range: > OR = 6 0. The reference range was not used to int erpret this result as normal/abnormal . BUN/CREATININE NOT APPLICABLE 6-22 RATIO (test code = BUN/CREATININE RATIO) SODIUM (test code 140 mmol/L 135-146 N = SODIUM) POTASSIUM (test 4.6 mmol/L 3.5-5.3 N code = POTASSIUM) CHLORIDE (test 103 mmol/L 98-110 N code = CHLORIDE) CARBON DIOXIDE 28 mmol/L 20-32 N (test code = CARBON DIOXIDE) CALCIUM (test 9.8 mg/dl 8.6-10.4 N code = CALCIUM) PROTEIN, TOTAL 7.3 g/dl 6.1-8.1 N (test code = PROTEIN, TOTAL) ALBUMIN (test 4.4 g/dl 3.6-5.1 N code = ALBUMIN) GLOBULIN (test 2.9 {G/DL CALC} 1.9-3.7 N code = GLOBULIN) ALBUMIN/GLOBULIN 1.5 {CALC} 1.0-2.5 N RATIO (test code = ALBUMIN/GLOBULIN RATIO) BILIRUBIN, TOTAL; 0.8 mg/dl 0.2-1.2 N Normal (test code = 99598-1) ALKALINE 60 u/l 37-153 N PHOSPHATASE (test code = ALKALINE PHOSPHATASE) AST; Normal (test 23 u/l 10-35 N code = 1916-6) ALT; Above High 30 u/l 6-29 Threshold (test code = 1742-6) [facility] Physicians[QL] VITAMIN D, 25-HYDROXY, LC/MS/[id number] 11:55:00 Test Item Value Reference Range Interpretation Comments VITAMIN 14 ng/ml 30-100 Vitamin D Statu s D,25-OH,TOTAL,IA 25-OH Vitam in D: (test code = VITAMIN Deficie ncy: D,25-OH,TOTAL,IA) <20 ng/mLInsufficie ncy: 20 - 29 ng/mLOptimal: > or = 30 n g/mL For 25-OH Vitamin D testing on patients on D2-supplementat ion and patients for wh om quantitation of D2 and D3 fractions is re quired, the [employer] D(TM)25-OH VIT D, (D2,D3), LC/MS/MS is recommended: order code 34975 (pat ients >2yrs).See Note 1 Note 1 For additional information, pl ease refer to http://educatio nVirtual Event Bags/fa q/BAI935 (This link is b eing provided for informational/e ducational purposes only.) REPORT COMMENT:FASTING:YESUnMoab [facility] Hospital Physicians[O] Hemoglobin A1c (in office)2020-07-12 11:27:00 Test Item Value Reference Range Interpretation Comments HEMOGLOBIN A1c (test code = 4548-4) 8.2 [facility] Physicians[Q] LIPID PANEL WITH REFLEX TO DIRECT LDL 2020-04-25 13:13:00 Test Item Value Reference Range Interpretation Comments CHOLESTEROL, TOTAL; 177 mg/dl <200 N Normal (test code = 2093-3) HDL CHOLESTEROL; 58 mg/dl > OR = 50 N Normal (test code = 2085-9) TRIGLYCERIDES; Above 150 mg/dl <150 High Threshold (test code = 2571-8) LDL-CHOLESTEROL; 94 {MG/DL N Reference r mame: Normal (test code = ISAAC} <100 David irable range 03293-6) <100 mg/dL for primary prevent ion; <70 mg/dL for patients with C HD or diabetic patien ts with > or = 2 C HD risk factors. L DL-C is now calculat ed using the Kari calculation, wh ich is a validated novel method providin g better accuracy than the Friedewald equation in the estimation of L DL-C. Al SS et al . MATHEW. 2013;310( 19): 6972-3330 (http://educati on.EVIIVO. com/f aq/PCN177) CHOL/HDLC RATIO 3.1 {CALC} <5.0 N (test code = CHOL/HDLC RATIO) NON HDL CHOLESTEROL 119 {MG/DL <130 N For sherry ents with (test code = NON HDL ISAAC} diabete s plus 1 CHOLESTEROL) major ASCVD ris k factor, treatin g to a non-HDL-C goa l of <100 mg/dL (LDL -C of <70 mg/dL) is considered a therapeutic opt ion. [facility] Physicians[QL] CMP [id number] 13:13:00 Test Item Value Reference Range Interpretation Comments GLUCOSE; Above 157 mg/dl 65-99 Fasting refer ence High Threshold interval For someone (test code = without known 1547-9) diabetes, a glucosevalue >1 25 mg/dL indicates that they may havedi abetes and this should be confirmed with afollow-up test . UREA NITROGEN 15 mg/dl 7-25 N (BUN) (test code = UREA NITROGEN (BUN)) CREATININE (test 0.67 mg/dl 0.50-0.99 N For patient s >49 years code = of age, the ref erence CREATININE) limitfor [facility] nine is approximately 1 3% higher for peopleidentifie d as -Ashlie n. eGFR NON-AFR. 94 {ML/MIN/1.7} > OR = 60 N [place] (test code = eGFR NON-AFR. [place]) eGFR 109 {ML/MIN/1.7} > OR = 60 N [place] (test code = eGFR ) BUN/CREATININE NOT APPLICABLE 6-22 RATIO (test code = BUN/CREATININE RATIO) SODIUM (test code 139 mmol/L 135-146 N = SODIUM) POTASSIUM (test 4.8 mmol/L 3.5-5.3 N code = POTASSIUM) CHLORIDE (test 104 mmol/L 98-110 N code = CHLORIDE) CARBON DIOXIDE 26 mmol/L 20-32 N (test code = CARBON DIOXIDE) CALCIUM (test 9.8 mg/dl 8.6-10.4 N code = CALCIUM) PROTEIN, TOTAL 7.6 g/dl 6.1-8.1 N (test code = PROTEIN, TOTAL) ALBUMIN (test 4.7 g/dl 3.6-5.1 N code = ALBUMIN) GLOBULIN (test 2.9 {G/DL CALC} 1.9-3.7 N code = GLOBULIN) ALBUMIN/GLOBULIN 1.6 {CALC} 1.0-2.5 N RATIO (test code = ALBUMIN/GLOBULIN RATIO) BILIRUBIN, TOTAL; 0.9 mg/dl 0.2-1.2 N Normal (test code = 94744-7) ALKALINE 66 u/l 37-153 N PHOSPHATASE (test code = ALKALINE PHOSPHATASE) AST; Normal (test 32 u/l 10-35 N code = 1916-6) ALT; Above High 41 u/l 6-29 Threshold (test code = 1742-6) [facility] Physicians[] HEMOGLOBIN [id number] 13:13:00 Test Item Value Reference Range Interpretation Comments HEMOGLOBIN A1c; 7.6 {% of <5.7 For someone without Above High total} known diabetes, a Threshold (test hemoglobin A 1cvalue of code = 4548-4) 6.5% or great er indicates that they may have diabet es and this should be confirmed with a follow-up test. For someone with kn own diabetes, a edie ue <7% indicates that their diabetes is wel l controlled and a value greater than or equal to 7% indicates suboptimal cont rol. A1c targets elijah uld be individualized based on duration of diabetes, age, comorbid condit ions, and other considerations. Currently, no consensus exist s regarding use ofhemoglobin A1 c for diagnosis of di abetes for children. [facility] Digital Mammo Screening Edison [id number] 10:06:00BILATERAL DIGITAL SCREENING MAMMOGRAM WITH CAD: 12/01/2019CLINICAL: /Z12.31 Encounter For Screening Mammogram For Malignant Neoplasm OfBreast. Current study was evaluated with a Computer Aided Detection(CAD) system. COMPARISON:Comparison is made to exam dated: 11/27/2017 mammogram - [facility] - Outpatient Imaging. Current study contains 4 films. TECHNIQUE: Mammographic views were obtained using digital acquisition. Currentstudy was also evaluated with a Computer Aided Detection (CAD) system.FINDINGS:There are scattered fibroglandular densities in both breasts. There are stable benign vascular calcifications in both breasts. No significant masses, calcifications, or other findings are seen in eitherbreast. There has been no significant interval change.IMPRESSION: BENIGNRECOMMENDATION:There is no mammographic evidence of malignancy. A 1 yearscreening mammogram is recommended.(12/01/2020) This exam was interpreted [id number] at [facility]. Christian Mondragon sns/penrad:12/01/2019 10:23:10 Qa Developer(s): RT Alba(R)(M), [facility] -Outpatient Imagingletter sent: BI-RADS 1/2 Mammogram BI-RADS: 2 Benign--Read by: Christian Mondragon MDDictated Date/time: 12/01/19 10:23Electronically Signed by: Christian Mondragon MD 11/30/2009:23FINAL REPORTUnMoab Regional Hospital Physicians[Q] LIPID PANEL WITH REFLEX TO DIRECT [id number] 09:07:00 Test Item Value Reference Range Interpretation Comments CHOLESTEROL, TOTAL; 142 mg/dl <200 N Normal (test code = 2093-3) HDL CHOLESTEROL; 50 mg/dl > OR = 50 N Normal (test code = 2085-9) TRIGLYCERIDES; 115 mg/dl <150 N Normal (test code = 2571-8) LDL-CHOLESTEROL; 72 {MG/DL N Reference r mame: Normal (test code = ISAAC} <100 David irable range 52725-7) <100 mg/dL for primary prevent ion; <70 mg/dL for patients with C HD or diabetic patien ts with > or = 2 C HD risk factors. L DL-C is now calculat ed using the Al-Nilo calculation, wh ich is a validated novel method providin g better accuracy than the Friedewald equation in the estimation of L DL-C. Al SS et al . MATHEW. 2013;310( 19): 2834-3149 (http://educati on.EVIIVO. com/f aq/NLR383) CHOL/HDLC RATIO 2.8 {CALC} <5.0 N (test code = CHOL/HDLC RATIO) NON HDL CHOLESTEROL 92 {MG/DL <130 N For sherry ents with (test code = NON HDL ISAAC} diabete s plus 1 CHOLESTEROL) major ASCVD ris k factor, treatin g to a non-HDL-C goa l of <100 mg/dL (LDL -C of <70 mg/dL) is considered a therapeutic opt ion. [facility] Physicians[QL] MICROALBUMIN, RANDOM URINE (W/CREATININE) 2019-10-26 09:07:00 Test Item Value Reference Range Interpretation Comments CREATININE, RANDOM 46 mg/dl 20-275 N URINE (test code = CREATININE, RANDOM URINE) MICROALBUMIN (test 0.2 mg/dl N Reference RangeNot code = established MICROALBUMIN) MICROALBUMIN/CREATI 4 {MCG/MG <30 N The ADA defines NINE RATIO, RANDOM CRE} abnormali ties in URINE (test code = albuminex cretion as MICROALBUMIN/CREATI follows: Category NINE RATIO, RANDOM Result (mcg/mg URINE) creatinine) Nor mal <30Microalbumin uria 30-299 Clin ical albuminuria > OR = 300 The ADA rec ommends that at least t wo of threespecimens collected withi n a 3-6 month period be abnormal before consider ing a patient to bewi thin a diagnostic yari gory. [facility] Physicians[QL] CMP [id number] 09:07:00 Test Item Value Reference Range Interpretation Comments GLUCOSE; Above 144 mg/dl 65-99 Fasting refer ence High Threshold interval For someone (test code = without known 1547-9) diabetes, a glucosevalue >1 25 mg/dL indicates that they may havedi abetes and this should be confirmed with afollow-up test . UREA NITROGEN 14 mg/dl 7-25 N (BUN) (test code = UREA NITROGEN (BUN)) CREATININE (test 0.64 mg/dl 0.50-0.99 N For patient s >49 years code = of age, the ref erence CREATININE) limitfor Creati nine is approximately 1 3% higher for peopleidentifie d as -Ashlie n. eGFR NON-AFR. 96 {ML/MIN/1.7} > OR = 60 N [place] (test code = eGFR NON-AFR. [place]) eGFR 112 {ML/MIN/1.7} > OR = 60 N [place] (test code = eGFR ) BUN/CREATININE NOT APPLICABLE 6-22 RATIO (test code = BUN/CREATININE RATIO) SODIUM (test code 141 mmol/L 135-146 N = SODIUM) POTASSIUM (test 4.9 mmol/L 3.5-5.3 N code = POTASSIUM) CHLORIDE (test 105 mmol/L 98-110 N code = CHLORIDE) CARBON DIOXIDE 29 mmol/L 20-32 N (test code = CARBON DIOXIDE) CALCIUM (test 9.9 mg/dl 8.6-10.4 N code = CALCIUM) PROTEIN, TOTAL 7.4 g/dl 6.1-8.1 N (test code = PROTEIN, TOTAL) ALBUMIN (test 4.6 g/dl 3.6-5.1 N code = ALBUMIN) GLOBULIN (test 2.8 {G/DL CALC} 1.9-3.7 N code = GLOBULIN) ALBUMIN/GLOBULIN 1.6 {CALC} 1.0-2.5 N RATIO (test code = ALBUMIN/GLOBULIN RATIO) BILIRUBIN, TOTAL; 0.8 mg/dl 0.2-1.2 N Normal (test code = 84502-9) ALKALINE 67 u/l 37-153 N PHOSPHATASE (test code = ALKALINE PHOSPHATASE) AST; Normal (test 26 u/l 10-35 N code = 1916-6) ALT; Above High 38 u/l 6-29 Threshold (test code = 1742-6) [facility][QL] CBC (INCLUDES DIFF/PLT)2019-10-26 09:07:00 Test Item Value Reference Range Interpretation Comments WHITE BLOOD CELL COUNT 5.1 {Thousand/u} 3.8-10.8 N (test code = WHITE BLOOD CELL COUNT) RED BLOOD CELL COUNT (test 4.80 {Million/uL} 3.80-5.10 N code = RED BLOOD CELL COUNT) HEMOGLOBIN; Normal (test 14.0 g/dl 11.7-15.5 N code = 41828-9) HEMATOCRIT; Normal (test 44.1 % 35.0-45.0 N code = 4544-3) MCV; Normal (test code = 91.9 fL 80.0-100.0 N 787-2) MCHC; Below Low Threshold 31.7 g/dl 32.0-36.0 N (test code = 51135-4) RDW; Normal (test code = 12.4 % 11.0-15.0 N 788-0) PLATELET COUNT; Normal 199 {Thousand/u} 140-400 N (test code = 777-3) MPV; Normal (test code = 10.8 fL 7.5-12.5 N 06882-4) ABSOLUTE NEUTROPHILS (test 2509 {cells/uL} 1943-9000 N code = ABSOLUTE NEUTROPHILS) ABSOLUTE LYMPHOCYTES (test 2086 {cells/uL} 850-3900 N code = ABSOLUTE LYMPHOCYTES) ABSOLUTE MONOCYTES (test 352 {cells/uL} 200-950 N code = ABSOLUTE MONOCYTES) ABSOLUTE EOSINOPHILS (test 122 {cells/uL} 15-500 N code = ABSOLUTE EOSINOPHILS) ABSOLUTE BASOPHILS (test 31 {cells/uL} 0-200 N code = ABSOLUTE BASOPHILS) NEUTROPHILS (test code = 49.2 % N NEUTROPHILS) LYMPHOCYTES (test code = 40.9 % N LYMPHOCYTES) MONOCYTES; Normal (test 6.9 % N code = 95433-2) EOSINOPHILS; Normal (test 2.4 % N code = 41193-2) BASOPHILS; Normal (test 0.6 % N code = 27638-3) [facility][QL] TSH, 3RD GENERATION W/REFLEX TO [id number] 09:07:00 Test Item Value Reference Range Interpretation Comments TSH, 3RD GENERATION W/REFLEX TO 2.50 {MIU/L} 0.40-4.50 N FT4 (test code = TSH, 3RD GENERATION W/REFLEX TO FT4) [facility][QL] VITAMIN D, 25-HYDROXY, LC/MS/[id number] 09:07:00 Test Item Value Reference Range Interpretation Comments VITAMIN 30 ng/ml 30-100 N Vitamin D Statu s D,25-OH,TOTAL,IA 25-OH Vitam in D: (test code = VITAMIN Deficie ncy: D,25-OH,TOTAL,IA) <20 ng/mLInsufficie ncy: 20 - 29 ng/mLOptimal: > or = 30 n g/mL For 25-OH Vitamin D testing on patients on D2-supplementat ion and patients for wh om quantitation of D2 and D3 fractions is re quired, the [employer] D(TM)25-OH VIT D, (D2,D3), LC/MS/MS is recommended: order code 11204 (pat ients >2yrs).See Note 1 Note 1 For additional information, pl ease refer to http://educatio n.[employer]/fa q/FJA727 (This link is b eing provided for informational/e ducational purposes only.) [facility][O] Hemoglobin A1c (in office)2019-10-26 08:47:00 Test Item Value Reference Range Interpretation Comments HEMOGLOBIN A1c (test code = 4548-4) 6.8% [facility]] Helicobacter pylori Breath [id number] 09:16:01 Test Item Value Reference Range Interpretation Comments H pylori Breath Negative A negative r esult does not (test code = H rule out the possibility pylori Breath) of H.pylori i nfection. Ifclinical sign s are suggestive of H . pylori infection, rete st with a new sampleor an alternate method.Known ca uses of false negative results include:1. Use of antimicrobials, proton pump inhibitors and bismuth prepara tion withinthe 2 wee ks preceding the t est.2. Administration of the breath test les s than 4 weeks after com pletion oftherapy to er adicate H. pylori.3. Minoo ture or late collection of the post-dose sampl e.Known causes of false positive results include :1. Patient with achlorhydr ia.2. Rinsing the Pra nactin citric in the m outh allowing contac t with ureasepositive bacteria.3. The presence of other gastric spiral organisms such as Helicobacterhei lmanii. [facility]] CMP [id number] 09:58:01 Test Item Value Reference Range Interpretation Comments Sodium Level 141 {mEq/l} 135-145 (test code = 2951-2) Potassium Level 4.5 {mEq/l} 3.5-5.1 (test code = 2823-3) Chloride Level 106 {mEq/l} 95-109 (test code = 5-0) Carbon Dioxide 27 {mEq/l} 24-32 (test code = 8-9) AGAP (test code = 12.5 {mEq/l} 10.0-20.0 92985-1) Glucose Lvl; 130 mg/dl 70-99 Adult reference range Above High values reflect the Threshold (test clinical kellen delinesof the code = 2345-7) [employer] et[employer]. Creatinine Lvl 0.70 mg/dl 0.50-1.40 (test code = 2160-0) Blood Urea 14 mg/dl 7-22 Nitrogen (test code = 3094-0) BUN/Creatinine 20 6-25 Ratio (test code = 3097-3) Total Protein 8.1 g/dl 6.4-8.4 (test code = 2885-2) Albumin Lvl (test 4.2 g/dl 3.5-5.0 code = 1751-7) Globulin (test 3.9 g/dl 2.7-4.2 code = 83884-5) A/G Ratio (test 1.1 0.7-1.6 code = 1759-0) Calcium Level 9.6 mg/dl 8.5-10.5 Total (test code = 68608-2) ALT; Above High 68 u/l 0-65 Threshold (test code = 1743-4) AST (test code = 37 u/l 0-37 34982-2) Alk Phos (test 101 u/l 39-136 The pediatric reference code = 1783-0) ranges for th is test represent a CLSI-basedtrans ference of the CALIPER jose abase of pediatric refer ence intervals to eSiemens Denton analyzer (Clinical Biochemistry 46 (2013): 2058-6652). [facility] has not internally validated these reference ranges and therefore they should be used only in th e context of a thoroughcl inical assessment. Bili Total (test 0.9 mg/dl 0.2-1.3 code = 1975-2) eGFR (test code = 94 The eGFR i s calculated 69963-5) {ML/MIN/1.7} using the CKD-E PI formula. In mos t young, healthyindividu als the eGFR will be >9 0 mL/min/1.73m2. The eGFR declines with a ge. AneGFR of 60-89 may be normal in some population s, particularly th e elderly, forwhom the CKD -EPI formula has not been extensively edie idated. Use of the eGFR isnot recommended in the following populations:Ind ividuals with unstable c reatinine concentrations, including patient s and those with seri ous co-morbid conditions.Sherry ents with extremes in mus leela mass or diet.The jose a above are obtained fr om the National Kidney Disease Education Progr am(NKDEP) which additiona lly recommends that when the eGFR is used in patientswith ex tremes of body mass index for purposes of rosetta g dosing, the eGFR should be multiplied by t he estimated BMI. [facility][] LIPID PANEL WITH REFLEX TO DIRECT LDL 2019-03-22 09:58:01 Test Item Value Reference Range Interpretation Comments Chol (test code = 2093-3) 150 mg/dl <=199 Trig (test code = 2571-8) 119 mg/dl <=149 HDL Cholesterol; Below Low 54 mg/dl >=61 Threshold (test code = 2085-9) CHD Risk; Below Low Threshold (test 2.78 3.90-5.80 code = 98209-9) LDL (test code = 29477-3) 72 mg/dl <=99 VLDL (test code = VLDL) 24 [facility]] HEMOGLOBIN [id number] 09:58:01 Test Item Value Reference Range Interpretation Comments Hemoglobin A1c; Above High Threshold 7.1 % <=5.6 (test code = 4548-4) [facility]] VITAMIN D, 25-HYDROXY, LC/MS/[id number] 09:58:01 Test Item Value Reference Range Interpretation Comments Vitamin D, 25-OH, 20.7 ng/ml 30.0-100.0 Reference range is based Total (test code on recommen dations in the = Vitamin D, EndocrineSociet y Clinical 25-OH, Total) Practice Guide line (J Clin Endocrinol [id number];96:19 11-1930) [facility][O] Hemoglobin A1c (in office)2018-11-04 11:42:00 Test Item Value Reference Range Interpretation Comments HEMOGLOBIN A1c (test code = 4548-4) 6.4% [facility]] CBC (INCLUDES DIFF/PLT)2018-11-04 10:20:01 Test Item Value Reference Range Interpretation Comments WBC (test code = 6690-2) 5.7 {K/CMM} 3.7-10.4 RBC (test code = 789-8) 4.82 {M/CMM} 4.20-5.40 Hgb (test code = 718-7) 14.4 g/dl 12.0-16.0 Hct (test code = 38999-3) 45.0 % 36.0-48.0 MCV (test code = 787-2) 93.4 fL 80.0-98.0 MCH (test code = 785-6) 29.8 pg 27.0-31.0 MCHC; Below Low Threshold (test 31.9 g/dl 32.0-36.0 code = 786-4) RDW (test code = 788-0) 13.7 % 11.5-14.5 Platelet (test code = 09188-8) 215 {K/CMM} 133-450 Mean Platelet Volume (test code 9.5 fL 7.4-10.4 = 43895-8) [facility]] [id number] 10:20:01 Test Item Value Reference Range Interpretation Comments Segmented Neutrophils (test code 54.0 % 45.0-75.0 = 98854-5) Monocytes (test code = 04277-1) 6.3 % 2.0-12.0 Lymphocytes (test code = 53148-9) 36.7 % 20.0-40.0 Eosinophils (test code = 22912-0) 2.3 % 0.0-4.0 Basophils (test code = 706-2) 0.7 % 0.0-1.0 Segs-Bands # (test code = 3.1 {K/CMM} 1.5-8.1 96005-5) Lymphocytes # (test code = 2.1 {K/CMM} 1.0-5.5 51372-8) Monocytes # (test code = 51177-3) 0.4 {K/CMM} 0.0-0.8 Eosinophils # (test code = 0.1 {K/CMM} 0.0-0.5 56356-0) [facility]] CMP [id number] 10:20:01 Test Item Value Reference Range Interpretation Comments Sodium Level 141 {mEq/l} 135-145 (test code = 2951-2) Potassium Level 4.6 {mEq/l} 3.5-5.1 (test code = 2823-3) Chloride Level 107 {mEq/l} 95-109 (test code = 2075-0) Carbon Dioxide; 22 {mEq/l} 24-32 Below Low Threshold (test code = 2028-9) AGAP (test code = 16.6 {mEq/l} 10.0-20.0 89151-3) Glucose Lvl; 108 mg/dl 70-99 Adult reference range Above High values reflect the Threshold (test clinical kellen delinesof the code = 2345-7) [employer] etes Association. Creatinine Lvl 0.80 mg/dl 0.50-1.40 (test code = 2160-0) Blood Urea 15 mg/dl 7-22 Nitrogen (test code = 3094-0) BUN/Creatinine 19 6-25 Ratio (test code = 3097-3) Total Protein 7.7 g/dl 6.4-8.4 (test code = 2885-2) Albumin Lvl (test 4.1 g/dl 3.5-5.0 code = 1751-7) Globulin (test 3.6 g/dl 2.7-4.2 code = 22320-1) A/G Ratio (test 1.1 0.7-1.6 code = 1759-0) Calcium Level 9.5 mg/dl 8.5-10.5 Total (test code = 36995-6) ALT (test code = 62 u/l 0-65 1743-4) AST (test code = 36 u/l 0-37 81700-8) Alk Phos (test 89 u/l 39-136 code = 1783-0) Bili Total (test 0.7 mg/dl 0.2-1.3 code = 1974-) eGFR (test code = 80 The eGFR i s calculated 13562-6) {ML/MIN/1.7} using the CKD-E PI formula. In mos t young, healthyindividu als the eGFR will be >9 0 mL/min/1.73m2. The eGFR declines with a ge. AneGFR of 60-89 may be normal in some population s, particularly th e elderly, forwhom the CKD -EPI formula has not been extensively edie idated. Use of the eGFR isnot recommended in the following populations:Ind ividuals with unstable c reatinine concentrations, including patient s and those with seri ous co-morbid conditions.Sherry ents with extremes in mus leela mass or diet.The jose a above are obtained fr om the National Kidney Disease Education Progr am(NKDEP) which venessa burr recommends that when the eGFR is used in patientswith ex tremes of body mass index for purposes of rosetat g dosing, the eGFR should be multiplied by t he estimated BMI. [facility]] TSH, 3RD GENERATION W/REFLEX TO FT4 2018-11-04 10:20:01 Test Item Value Reference Range Interpretation Comments TSH (test code = 71617-7) 1.820 {uIU/ml} 0.360-3.740 [facility][] LIPID PANEL WITH REFLEX TO DIRECT LDL 2018-11-04 10:20:01 Test Item Value Reference Range Interpretation Comments Chol (test code = 2093-3) 164 mg/dl <=199 Trig (test code = 2571-8) 147 mg/dl <=149 HDL Cholesterol; Below Low 55 mg/dl >=61 Threshold (test code = 2085-9) CHD Risk; Below Low Threshold (test 2.98 3.90-5.80 code = 91135-6) LDL (test code = 80616-0) 80 mg/dl <=99 VLDL (test code = VLDL) 29 [facility]] VITAMIN D, 25-HYDROXY, LC/MS/[id number] 10:20:01 Test Item Value Reference Range Interpretation Comments Vitamin D, 25-OH, 18.7 ng/ml 30.0-100.0 Reference range is based Total (test code on recommen dations in the = Vitamin D, EndocrineSociet y Clinical 25-OH, Total) Practice Guide line (J Clin Endocrinol Tlgmj5614;96:19 11-1930) [facility]] MICROALBUMIN, RANDOM URINE (W/CREATININE) 2018-11-04 10:20:01 Test Item Value Reference Range Interpretation Comments Urine Microalbumin <5.0 No establ ished (test code = Urine reference range. Microalbumin) U Creatinine (test 72.80 mg/dl No establ ished code = 2161-8) reference ran ge. Urine Microalbuming See Note <=30.0 unable t o calculate Creatinine Ratio (test code = 96412-2) [facility]] Helicobacter pylori Breath [id number] 09:42:01 Test Item Value Reference Range Interpretation Comments H pylori Breath Negative A negative r esult does not (test code = H rule out the possibility pylori Breath) of H.pylori i nfection. Ifclinical sign s are suggestive of H . pylori infection, rete st with a new sampleor an alternate method.Known ca uses of false negative results include:1. Use of antimicrobials, proton pump inhibitors and bismuth prepara tion withinthe 2 wee ks preceding the t est.2. Administration of the breath test les s than 4 weeks after com pletion oftherapy to er adicate H. pylori.3. Minoo ture or late collection of the post-dose sampl e.Known causes of false positive results include :1. Patient with achlorhydr ia.2. Rinsing the Pra nactin citric in the m outh allowing contac t with ureasepositive bacteria.3. The presence of other gastric spiral organisms such as Helicobacterhei lmanii. [facility]] HEPATIC FUNCTION [id number] 09:42:01 Test Item Value Reference Range Interpretation Comments Total Protein (test code = 2885-2) 7.6 g/dl 6.4-8.4 Albumin Lvl (test code = 1751-7) 4.0 g/dl 3.5-5.0 Bili Total (test code = 1974-2) 0.9 mg/dl 0.2-1.3 Bilirubin Direct (test code = 0.2 mg/dl 0.0-0.3 1967-) Bilirubin Indirect (test code = 0.7 mg/dl 0.0-1.0 1970-05) Alk Phos (test code = 1783-0) 93 u/l 39-136 AST (test code = 01978-1) 28 u/l 0-37 ALT (test code = 1743-4) 55 u/l 0-65 Globulin (test code = 30260-5) 3.6 g/dl 2.7-4.2 A/G Ratio (test code = 1759-0) 1.1 0.7-1.6 [facility][] LIPID PANEL WITH REFLEX TO DIRECT LDL 2018-03-30 09:42:01 Test Item Value Reference Range Interpretation Comments Chol (test code = 2093-3) 133 mg/dl <=199 Trig (test code = 2571-8) 143 mg/dl <=149 HDL Cholesterol; Below Low 41 mg/dl >=61 Threshold (test code = 2085-9) LDL (test code = 97159-6) 63 mg/dl <=99 CHD Risk; Below Low Threshold (test 3.24 3.90-5.80 code = 22029-1) VLDL (test code = VLDL) 29 [facility]] HEMOGLOBIN [id number] 09:42:01 Test Item Value Reference Range Interpretation Comments Hemoglobin A1c; Above High Threshold 6.6 % <=5.6 (test code = 4548-4) [facility] Abdomen complete [id number] 13:03:00 PROCEDURE: ABDOMINAL ULTRASOUNDINDICATION: R10.9 Unspecified abdominal pain - COMPARISON: None.FINDINGS:LIVER:Evidence of diffuse hepatic steatosis. No focal hepatic abnormality.Doppler demonstrates a normal monophasic hepatopedal waveform within the mainportal vein.GALLBLADDER:No gallstones, sludge, pericholecystic fluid or wall thickening. Reportedlynegative sonographic Avila's.BILE DUCTS:No significant intrahepatic or extrahepatic biliary ductal dilation isapparent.The CBD measures 3-4 mm.PANCREAS:The visualized pancreas is unremarkable.SPLEEN:The spleen is normal.KIDNEYS:Normal size, contour and echogenicity without hydronephrosis.AORTA AND INFERIOR VENA CAVA:Visualized portions of the aorta and IVC appear normal.Additional comments: None.IMPRESSION:1. Hepatic steatosis.SL: [id number]--Vugf by: Jude Larios MDDictated Date/time: 02/09/18 13:29Electronically Signed by: Jude Larios MD 02/09/1813:32FIN[facility]PORTUn[facility] Abdom[facility] view [id number] 12:35:00Clinical Indication: - R10.9 Unspecified abdominal pain;Comparison: NoneFINDINGS:The AP supine view of the abdomen shows gas scattered in the small bowel in anon-obstructive bowel gas pattern. Thereis no abnormal dilatation of bowelloops. A small colonic stool burden is present. There is no pneumatosis or masseffect. There are no radiopaque densities noted. Degenerative disc disease ispresent at L4-L5 and L5- S1.IMPRESSION:No acute abnormality visualized.SL: [id number]--Sfrr by: Pamela Negrete MDDictated Date/time: 02/09/18 16:19Electronically Signed by: Pamela Negrete MD 02/10/1816:20FINAL REPORTUnMo[facility][O] Urine Dipstick (In Office)2018-02-09 10:39:00 Test Item Value Reference Range Interpretation Comments Glucose (test code = Glucose) negative LEUKOCYTES (test code = negative LEUKOCYTES) NITRITE (test code = 33670-6) negative UROBILINOGEN (test code = 0.2 14586-6) PROTEIN (test code = 55798-3) negative pH (test code = pH) 5.5 URINE BLOOD (test code = trace-intact 66947-3) SPECIFIC GRAVITY (test code = 1.020 2965-2) KETONES (test code = 94029-6) negative BILIRUBIN (test code = 36747-4) negative COLOR URINE (test code = 5778-6) yellow [facility]] Helicobacter pylori Breath [id number] 10:33:01 Test Item Value Reference Range Interpretation Comments H pylori Breath Positive A A negative r esult does not (test code = H rule out the possibility pylori Breath) of H.pylori i nfection. Ifclinical sign s are suggestive of H . pylori infection, rete st with a new sampleor an alternate method.Known ca uses of false negative results include:1. Use of antimicrobials, proton pump inhibitors and bismuth prepara tion withinthe 2 wee ks preceding the t est.2. Administration of the breath test les s than 4 weeks after com pletion oftherapy to er adicate H. pylori.3. Minoo ture or late collection of the post-dose sampl e.Known causes of false positive results include :1. Patient with achlorhydr ia.2. Rinsing the Pra nactin citric in the m outh allowing contac t with ureasepositive bacteria.3. The presence of other gastric spiral organisms such as Helicobacterhei lmanii. [facility] Digital Mammo Screening [facility] [id number] 14:25:00BILATERAL FIRST EVER DIGITAL SCREENING MAMMOGRAM WITH CAD: 11/27/2017CLINICAL: /Z12.31 Encounter For Screening Mammogram For Malignant Neoplasm OfBreast. Current study was evaluated with a Computer Aided Detection (CAD) system. COMPARISON:No prior exams were available for comparison. TECHNIQUE: Mammographic views were obtained using digital acquisition. Currentstudy was also evaluated with a ComputerAided Detection (CAD) system.FINDINGS:There are scattered fibroglandular densities in both breasts. T here are benign vascular calcifications in both breasts. No significant masses, calcifications, or other findings are seen in eitherbreast. IMPRESSION: BENIGNRECOMMENDATION:There is no mammographic evidence of malignancy. A 1 yearscreening mammogram is recommended.(11/28/2018) [facility].Lyle baron/yessenia:11/27/2017 15:07:16 Qa Developer(s): JENNIFER Willis)(M), [facility] -Outpatient Imagingletter sent: BI-RADS 1/2 Mammogram BI-RADS: 2 Benign--Read by: Lyle Walsh MDDictated Date/time: 11/27/17 15:07Electronically Signed by: Lyle Walsh MD 11/27/1814:07FINAL REPORTUnMoab [facility]] MICROALBUMIN, RANDOM URINE (W/CREATININE)2017-11-05 16:54:01 Test Item Value Reference Range Interpretation Comments Urine Microalbumin <5.0 (test code = Urine Microalbumin) U Creatinine (test 47.40 mg/dl No establ ished code = 2161-8) reference ran ges. Urine Microalbuming <10.5 <=30.0 Creatinine Ratio (test code = 06522-9) [facility]] CMP [id number] 12:05:01 Test Item Value Reference Range Interpretation Comments Sodium Level 140 {mEq/l} 135-145 (test code = 2951-2) Potassium Level 4.3 {mEq/l} 3.5-5.1 (test code = 2823-3) Chloride Level 104 {mEq/l} 95-109 (test code = 2075-0) Carbon Dioxide 26 {mEq/l} 24-32 (test code = 2027-9) AGAP (test code = 14.3 {mEq/l} 10.0-20.0 60410-9) Glucose Lvl (test 92 mg/dl 70-99 Adult refe rence range code = 2345-7) values reflec t the clinical guidel inesof the [employer] Diabet es Association. Creatinine Lvl 0.70 mg/dl 0.50-1.40 (test code = 2160-0) Blood Urea 15 mg/dl 7-22 Nitrogen (test code = 3094-0) BUN/Creatinine 21 6-25 Ratio (test code = 3097-3) Total Protein; 9.2 g/dl 6.4-8.4 Above High Threshold (test code = 2885-2) Albumin Lvl (test 4.2 g/dl 3.5-5.0 code = 1751-7) Globulin; Above 5.0 g/dl 2.7-4.2 High Threshold (test code = 25545-2) A/G Ratio (test 0.8 0.7-1.6 code = 1759-0) Calcium Level 9.5 mg/dl 8.5-10.5 Total (test code = 63156-8) ALT (test code = 60 u/l 0-65 1743-4) AST; Above High 41 u/l 0-37 Threshold (test code = 44270-4) Bili Total (test 0.9 mg/dl 0.2-1.3 code = 1975-2) Alk Phos (test 76 u/l 39-136 code = 1783-0) eGFR (test code = 95 The eGFR i s calculated 02311-2) {ML/MIN/1.7} using the CKD-E PI formula. In mos t young, healthyindividu als the eGFR will be >9 0 mL/min/1.73m2. The eGFR declines with a ge. AneGFR of 60-89 may be normal in some population s, particularly th e elderly, forwhom the CKD -EPI formula has not been extensively edie idated. Use of the eGFR isnot recommended in the following populations:Ind ividuals with unstable c reatinine concentrations, including patient s and those with seri ous co-morbid conditions.Sherry ents with extremes in mus leela mass or diet.The jose a above are obtained fr om the National Kidney Disease Education Progr am(NKDEP) which additiona lly recommends that when the eGFR is used in patientswith ex tremes of body mass index for purposes of rosetta g dosing, the eGFR should be multiplied by t he estimated BMI. [facility]] LIPID [id number] 12:05:01 Test Item Value Reference Range Interpretation Comments Chol (test code = 2093-3) 131 mg/dl <=199 Trig (test code = 2571-8) 124 mg/dl <=149 HDL Cholesterol; Below Low 55 mg/dl >=61 Threshold (test code = 2085-9) CHD Risk; Below Low Threshold (test 2.38 3.90-5.80 code = 89791-4) LDL (test code = 26464-6) 51 mg/dl <=99 VLDL (test code = VLDL) 25 [facility]] TSH, 3RD GENERATION W/REFLEX TO FT4 2017-11-05 12:05:01 Test Item Value Reference Range Interpretation Comments TSH (test code = 72929-5) 3.480 {uIU/ml} 0.360-3.740 [facility]] CBC (INCLUDES DIFF/PLT)2017-11-05 12:05:01 Test Item Value Reference Range Interpretation Comments WBC (test code = 6690-2) 9.0 {K/CMM} 3.7-10.4 RBC (test code = 789-8) 4.65 {M/CMM} 4.20-5.40 Hgb (test code = 718-7) 14.6 g/dl 12.0-16.0 Hct (test code = 25660-2) 41.8 % 36.0-48.0 MCV (test code = 787-2) 89.9 fL 80.0-98.0 MCH; Above High Threshold (test 31.3 pg 27.0-31.0 code = 785-6) MCHC (test code = 786-4) 34.8 g/dl 32.0-36.0 RDW (test code = 788-0) 14.3 % 11.5-14.5 Platelet (test code = 69182-9) 240 {K/CMM} 133-450 Mean Platelet Volume (test code 9.1 fL 7.4-10.4 = 42508-8) [facility]] [id number] 12:05:01 Test Item Value Reference Range Interpretation Comments Segmented Neutrophils (test code 50.3 % 45.0-75.0 = 87082-1) Monocytes (test code = 94416-5) 5.5 % 2.0-12.0 Lymphocytes; Above High Threshold 42.2 % 20.0-40.0 (test code = 02008-8) Eosinophils (test code = 83599-6) 1.4 % 0.0-4.0 Basophils (test code = 706-2) 0.6 % 0.0-1.0 Segs-Bands # (test code = 4.5 {K/CMM} 1.5-8.1 83354-5) Lymphocytes # (test code = 3.8 {K/CMM} 1.0-5.5 47659-0) Monocytes # (test code = 24660-9) 0.5 {K/CMM} 0.0-0.8 Eosinophils # (test code = 0.1 {K/CMM} 0.0-0.5 17078-5) Basophils # (test code = 44918-7) 0.1 {K/CMM} 0.0-0.2 [facility][O] Hemoglobin A1c (in office)2017-11-05 11:48:00 Test Item Value Reference Range Interpretation Comments HEMOGLOBIN A1c (test code = 4548-4) 7.5% [facility] 2 views [id number] 11:08:00Study: Chest 2 views DX 06/10/2017 11:05 AM CSTPatient Name: LAKISHA ALEX MR: [id number]: 1960; Age: 57 years y/o FemaleOrdering Physician: Rich HennessyenClinical Indication: R05 Cough - cough x2 months Comparison: NoneFINDINGSLUNGS: The hyperinflated lungs are clear consolidation, pleural effusion, andpneumothorax.HEART AND MEDIASTINUM: Heart size at the upper limits of normal. LINES: None.OSSEOUS STRUCTURES: No fracture, dislocation, or suspicious focal osseouslesion. OTHER: None.IMPRESSION:1. Mild hyperinflation.2. Heart size near upper limits of normal.SL: [id number]--Bawm by: Min Bradford MDDictated Date/time: 06/10/17 11:15Electronically Signed by: Min Bradford MD 06/10/1810:15FINAL REPORT [facility] [facility]] LIPID [id number] 10:41:01 Test Item Value Reference Range Interpretation Comments Chol (test code = Chol) 138 mg/dl <=199 Trig; Above High Threshold (test 166 mg/dl <=149 code = 2571-8) HDL Cholesterol (test code = HDL 49 mg/dl >=61 Cholesterol) CHD Risk (test code = CHD Risk) 2.82 3.90-5.80 LDL (test code = LDL) 56 mg/dl <=99 VLDL (test code = VLDL) 33 [facility]] HEPATITIS B SURFACE ANTIBODY (QUANT) 2017-06-03 10:41:01 Test Item Value Reference Range Interpretation Comments Hepatitis B Surface 7.4 {miU/ml} <=7.4 <=7.4 Antibody (test code mIU/mL-- ------Negative = 14010-2) for Anti-HBs. N ot immune to HBV infection.7.5-1 2.4 mIU/mL--Borderl ine for Anti-HBs and im mune statusshould be further assesse d by considering oth er factors suchas clinical status follow-up testi ng, associated risk factors,and the use of additional diag nostic information.>12 .4 mIU/mL-------Po sitive for Anti-HBs. I mmune to HBV infectio n [facility]] CMP [id number] 10:41:01 Test Item Value Reference Range Interpretation Comments Sodium Level 140 {mEq/l} 135-145 (test code = Sodium Level) Potassium Level 4.5 {mEq/l} 3.5-5.1 (test code = Potassium Level) Chloride Level 106 {mEq/l} 95-109 (test code = Chloride Level) Carbon Dioxide 27 {mEq/l} 24-32 (test code = Carbon Dioxide) AGAP (test code = 11.5 {mEq/l} 10.0-20.0 AGAP) Glucose Lvl (test 109 mg/dl 70-99 Adult refe rence range code = Glucose values reflec t the Lvl) clinical guidel inesof the [place] Diabet es Association. Creatinine Lvl 0.60 mg/dl 0.50-1.40 (test code = Creatinine Lvl) Blood Urea 11 mg/dl 7-22 Nitrogen (test code = Blood Urea Nitrogen) BUN/Creatinine 18 6-25 Ratio (test code = BUN/Creatinine Ratio) Total Protein 8.2 g/dl 6.4-8.4 (test code = 56671-3) Albumin Lvl (test 4.1 g/dl 3.5-5.0 code = 1751-7) Globulin (test 4.1 g/dl 2.7-4.2 code = Globulin) A/G Ratio (test 1.0 0.7-1.6 code = A/G Ratio) Calcium Level 9.5 mg/dl 8.5-10.5 Total (test code = Calcium Level Total) ALT (test code = 57 u/l 0-65 1742-6) AST; Above High 42 u/l 0-37 Threshold (test code = 1916-6) Bili Total (test 0.7 mg/dl 0.2-1.3 code = 12261-8) Alk Phos (test 79 u/l 39-136 code = 1783-0) eGFR (test code = 100 The eGFR i s calculated eGFR) {ML/MIN/1.7} using the CKD-E PI formula. In mos t young, healthyindividu als the eGFR will be >9 0 mL/min/1.73m2. The eGFR declines with a ge. AneGFR of 60-89 may be normal in some population s, particularly th e elderly, forwhom the CKD -EPI formula has not been extensively edie idated. Use of the eGFR isnot recommended in the following populations:Ind ividuals with unstable c reatinine concentrations, including patient s and those with seri ous co-morbid conditions.Sherry ents with extremes in mus leela mass or diet.The jose a above are obtained fr om the National Kidney Disease Education Progr am(NKDEP) which venessa schreibery recommends that when the eGFR is used in patientswith ex tremes of body mass index for purposes of rosetta g dosing, the eGFR should be multiplied by t he estimated BMI. [facility]] HEPATITIS A AB, [id number] 10:41:01 Test Item Value Reference Range Interpretation Comments Hepatitis A Total (test code = Positive Negative Hepatitis A Total) [facility]] HEPATITIS B CORE AB [id number] 10:41:01 Test Item Value Reference Range Interpretation Comments Hepatitis B Core Antibody (test code Positive Negative = 38419-3) [facility]] MICROALBUMIN, RANDOM URINE (W/CREATININE) 2017-06-03 10:41:01 Test Item Value Reference Range Interpretation Comments Urine Microalbumin <5.0 (test code = Urine Microalbumin) U Creatinine (test 41.40 mg/dl No establ ished code = U Creatinine) referen ce ranges. Urine Microalbuming <12.1 <=30.0 Creatinine Ratio (test code = 95213-7) [facility]] VITAMIN D, 25-HYDROXY, LC/[id number] 10:41:01 Test Item Value Reference Range Interpretation Comments Vitamin D, 25-OH, 31.9 ng/ml 30.0-100.0 Reference range is based Total (test code on recommen dations in the = Vitamin D, EndocrineSociet y Clinical 25-OH, Total) Practice Guide line (J Clin Endocrinol Mwdil4017;96:19 11-1930) [facility]] MICROALBUMIN, RANDOM URINE (W/CREATININE) 2017-05-20 12:25:01 Test Item Value Reference Range Interpretation Comments MICROALBUMIN, RANDOM Cancel Reason: Nurse URINE (W/CREATININE) Request (test code = MICROALBUMIN, RANDOM URINE (W/CREATININE)) [facility]] LIPID [id number] 12:25:01 Test Item Value Reference Range Interpretation Comments Lipid Panel w/c LDL Cancel Reason: Nurse (test code = Lipid Request Panel w/c LDL) [facility]] VITAMIN D, 25-HYDROXY, [id number]/[id number] 12:25:01 Test Item Value Reference Range Interpretation Comments Vitamin D, 25-Hydroxy, Cancel Reason: Nurse Total* (test code = Request Vitamin D, 25-Hydroxy, Total*) [facility][O] Hemoglobin A1c (in office)2017-05-20 12:22:00 Test Item Value Reference Range Interpretation Comments HEMOGLOBIN A1c (test code = 4548-4) 7.4 [facility]. [facility] - HPV High [id number] 00:00:00 Test Item Value Reference Range Interpretation Comments HPV High Risk REPORT (test code = Negative HPV High Risk REPORT) [facility] (Diabetic)2016-11-12 05:00:00 Test Item Value Reference Range Interpretation Comments Negative Diabetic Eye Screening 12Nov2016 (test code = Negative Diabetic Eye Screening) [facility]
--- NOTE | 2020-12-29 17:32 | EDPHYS ---
Physician Documentation [facility] Name: Cande Black Age: 60 yrs Sex: Female : 1960 Arrival Date: 12/29/2020 Time: 12:12 Bed Waiting Private MD: ED Physician Heriberto Marinelli HPI: 12/29 17:47 This 60 yrs old Female presents to ER via Ambulatory with complaints of Nose kb Bleed. 17:47 The patient presents with a nose bleed, and the bleeding resolved prior to arrival. kb Onset: The symptoms/episode began/occurred this morning. Modifying factors: The symptoms are alleviated by nothing. the symptoms are aggravated by nothing. Associated signs and symptoms: The patient has no apparent associated signs or symptoms, Loss of consciousness: the patient experienced no loss of consciousness. Severity of symptoms: At their worst the symptoms were mild in the emergency department the symptoms have resolved and did so just prior to arrival. The patient has not experienced similar symptoms in the past. The patient has not recently seen a physician. Pt reports nosebleed this morning that lasted approx 1 hour. 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 Denies any pain, headache, lightheadedness. . Historical: - Allergies: 14:30 No Known Allergies; ap3 - Home Meds: 14:30 None [Active]; ap3 - PMHx: 14:30 None; ap3 - PSHx: 14:30 None; ap3 - Immunization history:: Adult Immunizations up to date. - Social history:: Smoking status: unknown. ROS: 17:47 Constitutional: Negative for fever, chills, and weight loss. kb 17:47 ENT: Positive for nose bleed. 17:47 All other systems are negative. Exam: 17:47 Constitutional: This is a well developed, well nourished patient who is awake, alert, kb and in no acute distress. ENT: Moist Mucous membranes Respiratory: Respirations even and unlabored. No increased work of breathing, no retractions or nasal flaring. Skin: Warm, dry with normal turgor. Normal color. MS/ Extremity: Pulses equal, no cyanosis. Neurovascular intact. Full, normal range of motion. Neuro: Awake and alert, GCS 15, oriented to person, place, time, and situation. Moves all extremities. Normal gait. Psych: Awake, alert, with orientation to person, place and time. Behavior, mood, and affect are within normal limits. Vital Signs: 17:27 BP 141 / 77; Pulse 79; Resp 18; Temp 97.2; Pulse Ox 100% ; Weight 61.23 kg; Height 5 iw ft. 2 in. (157.48 cm); Pain 0/10; 17:27 Body Mass Index 24.69 (61.23 kg, 157.48 cm) iw MDM: 17:31 Patient medically screened. kb 17:47 Data reviewed: vital signs, nurses notes. Data interpreted: Pulse oximetry: on room air kb is 100 %. Interpretation: normal. Counseling: I had a detailed discussion with the patient and/or guardian regarding: the historical points, exam findings, and any diagnostic results supporting the discharge/admit diagnosis, the need for outpatient follow up, an ENT specialist, to return to the emergency department if symptoms worsen or persist or if there are any questions or concerns that arise at home. Administered Medications: No medications were administered Disposition Summary: 12/29/20 17:31 Discharge Ordered Location: Home kb Condition: Stable kb Diagnosis - Epistaxis kb Followup: kb - With: Emergency Department - When: As needed - Reason: Worsening of condition Followup: kb - With: Private Physician - When: 2 - 3 days - Reason: Recheck today's complaints, Continuance of care, Re-evaluation by your physician Discharge Instructions: - Discharge Summary Sheet kb - Nosebleed, Adult, [id number] kb Forms: - Medication Reconciliation Form kb - Thank You Letter kb - Antibiotic Education kb - Prescription Opioid Use kb Addendum: 01/01/2021 07:09 Co-signature as Attending Physician, Heriberto Marinelli MD I agree with the assessment and k dr plan of care. Signatures: Melanie Childers, ALTERATIONS SUPERVISOR-C ALTERATIONS SUPERVISOR-CkHeriberto Haddad MD MD [facility] Enma Roberts RN RN ap3
--- NOTE | 2020-12-29 17:32 | ER ---
Nurse's Notes [facility] Name: Cande Black Age: 60 yrs Sex: Female : 1960 Arrival Date: 12/29/2020 Time: 12:12 Bed Waiting Private MD: Diagnosis: Epistaxis Presentation: 12/29 14:29 Chief complaint: Patient's son or daughter states: nosebleed started yesterday, stopped ap3 and then began again this morning at 11am. pt is not on any medications at home. currently bleeding has stopped and pt resting comfortably in waiting room. Coronavirus screen: At this time, unable to obtain information related to travel outside the [place] Ebola Screen: No symptoms or risks identified at this time. Initial Sepsis Screen: Does the patient meet any 2 criteria? No. Patient's initial sepsis screen is negative. Does the patient have a suspected source of infection? No. Patient's initial sepsis screen is negative. Risk Assessment: Do you want to hurt yourself or someone else? Patient reports no desire to harm self or others. Onset of symptoms is unknown. 14:29 Method Of Arrival: Ambulatory ap3 17:27 Acuity: GISELLE 5 iw Triage Assessment: 14:30 General: Appears in no apparent distress. comfortable, slender, well groomed, Behavior ap3 is calm, cooperative, appropriate for age. Pain: Denies pain. EENT: Nares on left slight dry blood noted. no active bleeding. Neuro: No deficits noted. Cardiovascular: No deficits noted. Respiratory: No deficits noted. GI: No deficits noted. : No deficits noted. Derm: No deficits noted. Musculoskeletal: No deficits noted. Historical: - Allergies: 14:30 No Known Allergies; ap3 - Home Meds: 14:30 None [Active]; ap3 - PMHx: 14:30 None; ap3 - PSHx: 14:30 None; ap3 - Immunization history:: Adult Immunizations up to date. - Social history:: Smoking status: unknown. Screenin:31 Abuse screen: Denies threats or abuse. Denies injuries from another. Nutritional ap3 screening: No deficits noted. Tuberculosis screening: No symptoms or risk factors identified. Fall Risk None identified. Assessment: 17:29 General: Appears in no apparent distress. comfortable, Behavior is calm, cooperative. ss Pain: Denies pain. Neuro: Level of Consciousness is awake, alert, obeys commands, Oriented to person, place. Respiratory: Airway is patent Respiratory effort is even, unlabored, Respiratory pattern is regular, symmetrical. EENT: Nares are clear Oral mucosa is moist. Throat is clear. Derm: Skin is pink, warm \T\ dry. normal. Vital Signs: 17:27 BP 141 / 77; Pulse 79; Resp 18; Temp 97.2; Pulse Ox 100% ; Weight 61.23 kg; Height 5 iw ft. 2 in. (157.48 cm); Pain 0/10; 17:27 Body Mass Index 24.69 (61.23 kg, 157.48 cm) iw ED Course: 12:12 Patient arrived in ED. mr 14:30 Triage completed. ap3 17:27 Arm band placed on right wrist. iw 17:29 Patient has correct armband on for positive identification. Bed in low position. Call ss light in reach. 17:29 No provider procedures requiring assistance completed. Patient did not have IV access ss during this emergency room visit. 17:31 Melanie Childers FNP-C is [facility]. kb 17:31 Heriberto Marinelli MD is Attending Physician. kb Administered Medications: No medications were administered Outcome: 17:31 Discharge ordered by . kb 17:34 Discharged to home ambulatory, with family. ss 17:34 Condition: good 17:34 Discharge instructions given to patient, family, Instructed on discharge instructions, follow up and referral plans. Demonstrated understanding of instructions, follow-up care. 17:35 Patient left the ED. ss Signatures: Melanie Childers FNP-C OUTPLACEMENT CONSULTANT-Farrah Sherri Gregory Romelia Castro RN RN Belkys Guajardo RN RN ss Enma Roberts RN RN ap3 Corrections: (The following items were deleted from the chart) 14:32 14:29 Acuity: GISELLE 5 ap3 ap3
[2020-12-29 17:43] VITALS: BP 141/77; TEMP 97.2; O2SAT 100
== END 2020-12-29 17:35 | disposition home or self-care (01) ==
LOC: ER 12:06
DX: R04.0 Epistaxis (principal)
CPT/HCPCS: 99281